=== PATIENT | male | born 1990 ===

== ENCOUNTER 2019-12-12 02:32 | Emergency (ER) | payer OTHER ==
[~2019-12-12] VITALS: Ht 180.3 cm; Wt 136.1 kg
[2019-12-12 02:35] VITALS: Ht 180.3 cm; Wt 136.1 kg
[2019-12-12 03:34] VITALS: BP 151/75
== END 2019-12-12 03:34 | disposition home or self-care (01) ==
LOC: ED 02:32
DX: F41.9 Anxiety disorder, unspecified (principal); Z88.1 Allergy status to other antibiotic agents; Z88.2 Allergy status to sulfonamides